=== PATIENT | female | born 1955 | race Caucasian/White ===

== ENCOUNTER → 2020-04-11 10:01 | Outpatient (CLI) | payer OTHER, SELFPAY ==
--- NOTE | ~2020-04-11 | MM_ITS ---
EXAMINATION: MM screening zaira BI w sage HISTORY: Screening TECHNIQUE: Craniocaudal and mediolateral oblique 3-D tomosynthesis images were obtained and synthetic 2-D images were generated. CAD analysis was submitted and interpreted. COMPARISON: Comparison to multiple prior studies sequentially, with oldest reviewed study dated 03/04. BREAST PARENCHYMAL COMPOSITION: There are scattered areas of fibroglandular density. FINDINGS: There is no evidence of suspicious mass, calcification, or architectural distortion to sugg est malignancy in either breast. There has been no suspicious interval change. IMPRESSION: 1. No mammographic evidence of malignancy. 2. Recommend routine screening mammography in one year. BI-RADS Category 1: Negative Reviewed, dictated and finalized at location A. GER BUSINESS PROCESS
== END ==
PROVIDERS: Visit Provider Obstetrics & Gynecology
DX: Z12.31 Encounter for screening mammogram for malignant neoplasm of breast (principal)
CPT/HCPCS: 77063; 77067

== ENCOUNTER → 2020-06-02 14:48 | Outpatient (CLI) | payer OTHER, SELFPAY ==
--- NOTE | ~2020-06-02 | CT_ITS ---
EXAMINATION: CT abdomen pelvis wo con DATE: 06/02/2020 15:04 INDICATION: Right lower quadrant pain TECHNIQUE: Computed tomography (CT) of the abdomen and pelvis was performed without intravenous contr ast. The dose-length product (DLP) was 562.30 mGy-cm. Automated exposure control and iterative recons truction technique were employed. COMPARISON: None FINDINGS: The lung bases are clear. The heart size is normal. The liver, spleen, pancreas, gallbladde r, and adrenal glands are normal. The kidneys are unremarkable. No pathologically enlarged abdominal or pelvic lymph nodes are identified. There is no free intraperitoneal gas or evidence of bowel obstr uction. A moderate volume of colonic stool is present. The appendix is not identified however no righ t lower quadrant inflammatory change is seen. There is a fat-containing umbilical hernia. Mild lumbar spondylosis is noted. Calcified fibroids are present in the uterus. IMPRESSION: 1. No CT correlate for the patient's symptoms. Reviewed, dictated and finalized at location A. 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
== END ==
PROVIDERS: PCP Family Medicine; Visit Provider Family Medicine
DX: R10.9 Unspecified abdominal pain (principal); K42.9 Umbilical hernia without obstruction or gangrene; M47.816 Spondylosis without myelopathy or radiculopathy, lumbar region; D25.9 Leiomyoma of uterus, unspecified
CPT/HCPCS: 74176

== ENCOUNTER 2020-10-07 12:02 | Outpatient (CLI) | payer OTHER, SELFPAY ==
--- NOTE | ~2020-10-07 | NM_ITS ---
EXAMINATION: NM hepatobiliary wo pharm DATE: 10/07/2020 14:33 INDICATION: Calculus of bile duct without cholangitis. COMPARISON: CT abdomen and pelvis 06/02/2020 TECHNIQUE: 5.1 mCi Tc-99m mebrofenin (Choletec) was administered intravenously. Scintigraphic images of the abdomen were obtained for one hour. Then, the patient drank 8 oz Ensure, and imaging was cont inued for 60 minutes. FINDINGS: There is normal clearance of radiotracer from the blood pool. There is homogeneous tracer u ptake by the liver. Activity progresses to the bowel and gallbladder. Gallbladder ejection fraction (GBEF) was 56%. Note that with this technique, normal GBEF >= 33%. IMPRESSION: 1. Normal hepatobiliary scintigraphy. Reviewed, dictated and finalized at location A.
== END 2020-10-07 12:03 | disposition home or self-care (01) ==
LOC: ANHIMG 12:05
PROVIDERS: PCP Family Medicine; Visit Provider Family Medicine
DX: K80.50 Calculus of bile duct without cholangitis or cholecystitis without obstruction (principal); E04.1 Nontoxic single thyroid nodule
CPT/HCPCS: 78226; A9537

== ENCOUNTER 2020-10-08 01:58 | Day surgery (SDC) | payer OTHER, SELFPAY ==
[2020-10-01 11:52] VITALS: BMI 24.8
[2020-10-08 10:21] VITALS: BP 141/84; PULSE 72; RESP 18; TEMP 36.9; O2SAT 97; BMI 24.8
[2020-10-08] MEDS: LACTATED RINGERS 1,000 ML 150 ML IV CONT (10:35)
--- NOTE | 2020-10-08 10:53 | WPDANESEPPF ---
Anes - Initial Pre Proc Eval Procedure: Operation Date: 10/08/20 11:30 Proposed Procedures p Esophagogastroduodenoscopy - Jose Reeves MD Date/Time: 10/08/20 10:53 Surgeon: Jose Reeves MD Pre Op Diagnosis: dysphagia, GERD Patient Data Age: 65 Gender: F Height: 1.7 m Weight: 72 kg Last Vital Signs Temp 36.9 C 10/08/20 10:21 Pulse 72 10/08/20 10:21 Resp 18 10/08/20 10:21 BP 141/84 H 10/08/20 10:21 Pulse Ox 97 10/08/20 10:21 Allergies Allergy/AdvReac Type Severity Reaction Status Date / Time sulfamethoxazole Allergy Mild HIVES Verified 10/08/20 10:19 sulfamethizole Allergy Unknown Hives Verified 10/08/20 10:19 trimethoprim Allergy Unknown Hives Verified 10/08/20 10:19 Home Medications Medication Instructions Recorded Confirmed Type calcium carbonate-vitamin D3 600 2 cap PO DAILY 11/22/19 10/01/20 History mg (1,500 mg)-400 unit capsule cholecalciferol (vitamin D3) 50 2,000 unit PO DAILY tablet 11/22/19 10/01/20 History mcg (2,000 unit) tablet metronidazole 0.75 % lotion 1 applic TOPICAL .COMPLEX 11/22/19 10/01/20 History multivitamin 1 tablet PO .COMPLEX 11/22/19 10/01/20 History fexofenadine 180 mg tablet 180 mg PO DAILY 11/25/19 10/01/20 History olopatadine 0.2 % eye drops 1 drop EACH EYE DAILY 11/25/19 10/01/20 History Synthroid 50 mcg tablet 50 mcg PO DAILY #90 tablet NS 08/18/20 10/08/20 Rx doxycycline hyclate 20 mg tablet 20 mg PO . q.a.m. tablet 09/30/20 10/01/20 History esomeprazole magnesium 40 mg 40 mg PO DAILY #30 cap 09/30/20 10/01/20 Rx capsule,delayed release vit C,J-Rj-nmtia-lutein-zeaxan 1 cap PO DAILY 10/01/20 10/01/20 History [Ocuvite Lutein and Zeaxanthin] Patient hx anesthesia problems: none Family hx anesthesia problems: none PMFSH Past Medical History Medical History Abdominal pain Allergies Arthritis BMI 25.0-25.9,adult Dysphagia Elevated triglycerides with high cholesterol Gastro-esophageal reflux disease without esophagitis Hypothyroidism Mixed hyperlipidemia Ocular rosacea Recurrent biliary colic Seasonal allergic rhinitis Vitamin D deficiency Surgical History Surgical History Bone spur of foot Bone Spur removal Left & Right Food 2012 & 2014 H/O right inguinal hernia repair 1974 History of carpal tunnel surgery of left wrist History of carpal tunnel surgery of right wrist History of tonsillectomy and adenoidectomy Family History Family History Sibling Family history of gastrointestinal disorder Family history of arthritis Family history of lupus erythematosus Mother , at age 92 Family history of arthritis Family history of chronic obstructive pulmonary disease Heart disease Father , at age 75 Depression Mesothelioma Grandparent , at age 86 Heart disease Diabetes mellitus Grandparent , at age 33 from accident Depression Grandparent , at age 85 No problems noted. Social History Social History Smoking status: Never smoker Alcohol intake: current Drinks per week: 1 Alcohol use details: 1 glass of wine per week Substance use: never Substance use type: does not use Living arrangements: with family Spiritual care concerns: No Anes - Eval Final PreProcedure Day of Procedure 10/08/20 10:53 Patient weight: normal Heart: regular rate and rhythm Lungs: clear to auscultation Airway: Mallampati scale class II Neurological: alert and oriented Last oral intake: >/= 8 hours ASA classification: II Emergent: no Anesthetic plan: proceed Anesthesia type and monitoring: general GIVS and standard monitoring Informed Consent: The patient's anesthetic plan and its attendant risks and benefits were disc
--- NOTE | 2020-10-08 11:28 | PM.HPGS ---
History of Present Illness History of Present Illness Consent: Risks, benefits, and alternatives have been discussed and questions answered. Patient agrees to proceed with procedure. Chief complaint: dysphagia, GERD Narrative: Violette Martinez is a 65 year old female with a long history of acid reflux. She taking Nexium [id number] for years with fairly good results. When she tried Prilosec it did not help. She will have heartburn frequently. Also it would often seen that food was not going down, getting caught in her throat. Review of Systems Review of Systems: All systems reviewed & are unremarkable except as noted in HPI and below PMFSH Past Medical History Medical History Abdominal pain Allergies Arthritis BMI 25.0-25.9,adult Dysphagia Elevated triglycerides with high cholesterol Gastro-esophageal reflux disease without esophagitis Hypothyroidism Mixed hyperlipidemia Ocular rosacea Recurrent biliary colic Seasonal allergic rhinitis Vitamin D deficiency Surgical History Surgical History Bone spur of foot Bone Spur removal Left & Right Food 2012 & 2014 H/O right inguinal hernia repair 1975 History of carpal tunnel surgery of left wrist History of carpal tunnel surgery of right wrist History of tonsillectomy and adenoidectomy Family History Family History Sibling Family history of gastrointestinal disorder Family history of arthritis Family history of lupus erythematosus Mother , at age 92 Family history of arthritis Family history of chronic obstructive pulmonary disease Heart disease Father , at age 75 Depression Mesothelioma Grandparent , at age 86 Heart disease Diabetes mellitus Grandparent , at age 33 from accident Depression Grandparent , at age 85 No problems noted. Social History Social History Smoking status: Never smoker Alcohol intake: current Drinks per week: 1 Alcohol use details: 1 glass of wine per week Substance use: never Substance use type: does not use Living arrangements: with family Spiritual care concerns: No Meds Home Medications and Allergies Home Medications Medication Instructions Recorded Confirmed Type calcium carbonate-vitamin D3 600 2 cap PO DAILY 11/22/19 10/01/20 History mg (1,500 mg)-400 unit capsule cholecalciferol (vitamin D3) 50 2,000 unit PO DAILY tablet 11/22/19 10/01/20 History mcg (2,000 unit) tablet metronidazole 0.75 % lotion 1 applic TOPICAL .COMPLEX 11/22/19 10/01/20 History multivitamin 1 tablet PO .COMPLEX 11/22/19 10/01/20 History fexofenadine 180 mg tablet 180 mg PO DAILY 11/25/19 10/01/20 History olopatadine 0.2 % eye drops 1 drop EACH EYE DAILY 11/25/19 10/01/20 History Synthroid 50 mcg tablet 50 mcg PO DAILY #90 tablet NS 08/18/20 10/08/20 Rx doxycycline hyclate 20 mg tablet 20 mg PO . q.a.m. tablet 09/30/20 10/01/20 History esomeprazole magnesium 40 mg 40 mg PO DAILY #30 cap 09/30/20 10/01/20 Rx capsule,delayed release vit C,E-Og-qfqaw-lutein-zeaxan 1 cap PO DAILY 10/01/20 10/01/20 History [Ocuvite Lutein and Zeaxanthin] Allergies Allergy/AdvReac Type Severity Reaction Status Date / Time sulfamethoxazole Allergy Mild HIVES Verified 10/08/20 10:19 sulfamethizole Allergy Unknown Hives Verified 10/08/20 10:19 trimethoprim Allergy Unknown Hives Verified 10/08/20 10:19 Vital Signs Vital Signs - 24 hr 10/08/20 10:21 Temperature 36.9 C Pulse Rate 72 Respiratory Rate 18 Blood Pressure 141/84 H Pulse Oximetry 97 Exam Const: General: alert Orientation/consciousness: patient oriented x3 Resp: Auscultation: clear to auscultation bilaterally Cardio: Rhythm: regular rhythm GI:
[2020-10-08 12:14] VITALS: BP 101/59; PULSE 66; RESP 14; O2SAT 98
[2020-10-08 12:24] VITALS: BP 109/66; PULSE 73; RESP 17; O2SAT 96
[2020-10-08 12:34] VITALS: BP 112/74; PULSE 66; RESP 14; O2SAT 99
== END 2020-10-08 13:13 | disposition home or self-care (01) ==
PROVIDERS: PCP Family Medicine; Visit Provider Internal Medicine Gastroenterology
PROC: 0DJ08ZZ Inspection of Upper Intestinal Tract, Via Natural or Artificial Opening Endoscopic (ICD-10-PCS; CPT 43235; principal; 2020-10-08 11:30)
DX: K21.00 Gastro-esophageal reflux disease with esophagitis, without bleeding (principal); R13.10 Dysphagia, unspecified; E78.2 Mixed hyperlipidemia; E03.9 Hypothyroidism, unspecified; E55.9 Vitamin D deficiency, unspecified
CPT/HCPCS: 43239; 88305; J2704; J7120

== ENCOUNTER → 2021-04-13 10:05 | Outpatient (CLI) | payer OTHER, SELFPAY ==
--- NOTE | ~2021-04-13 | MMUS_ITS ---
EXAMINATION: MM diagnostic zaira BI w sage, US breast RT limited HISTORY: History of right breast abscess. Palpable abnormality. TECHNIQUE: Additional 3-D tomosynthesis images of the breasts were performed and synthetic 2-D images were generated. CAD analysis was submitted and interpreted. High resolution Limited right breast ult rasound was performed. COMPARISON: Comparison to multiple prior studies sequentially, with oldest reviewed study dated 03/03. BREAST PARENCHYMAL COMPOSITION: Breast composed of scattered areas of fibroglandular density FINDINGS: MAMMOGRAPHIC FINDINGS: In the upper outer quadrant of the right breast there is a focal mass corresponding to the area of pa lpable concern. This mass measures approximately 8 mm greatest dimension. No suspicious calcification s or architectural distortion. No evidence for malignancy in the left breast. ULTRASOUND: Limited right breast ultrasound: At 10:00, 13 cm from the nipple in the area of palpable concern there is a normal hypoechoic mass wit h echogenic hilum measuring 7 x 5 x 3 mm, likely benign intramammary lymph node. This corresponds to the area of palpable concern. At 10:00, 13 cm from the nipple there is an oval hypoechoic complicated cyst measuring 4 mm. No additional masses are identified. IMPRESSION: 1. Probable benign right breast masses corresponding to the area of palpable concern. 2. Recommend 6 month follow-up diagnostic right mammogram and ultrasound BI-RADS category 3, probably benign findings. Reviewed, dictated and finalized at location A. I TUBE BENDER IMPRESSION: 1. Probable benign right breast masses corresponding to the area of palpable co ncern. 2. Recommend 6 month follow-up diagnostic right mammogram and ultrasound BI-RADS category 3, probably benign findings.
== END ==
PROVIDERS: PCP Family Medicine; Visit Provider Obstetrics & Gynecology
DX: N61.1 Abscess of the breast and nipple (principal); R92.8 Other abnormal and inconclusive findings on diagnostic imaging of breast
CPT/HCPCS: 76642; 77062; 77066; G0279

== ENCOUNTER → 2021-11-10 07:35 | Outpatient (CLI) | payer OTHER, SELFPAY ==
--- NOTE | ~2021-11-10 | MMUS_ITS ---
EXAMINATION: MM diagnostic zaira RT w sage, US breast RT limited HISTORY: Six-month follow-up for probably benign right breast mass TECHNIQUE: Craniocaudal, mediolateral, and mediolateral oblique 3-D tomosynthesis images of the right breast were performed and synthetic 2-D images were generated. CAD analysis was submitted and interp reted. High resolution limited right breast ultrasound was performed. COMPARISON: 04/13/2021, 04/11/2020, 03/15/2019 BREAST PARENCHYMAL COMPOSITION: There are scattered areas of fibroglandular density. FINDINGS: MAMMOGRAPHIC FINDINGS: There is a 5 mm low-density superficial mass in the posterior third of the upper outer quadrant of th e breast which demonstrates slight decrease in size. No suspicious mass, calcification, or architectu ral distortion are identified. ULTRASOUND: There is a 6 mm hypoechoic mass at the 10:00 location 13 cm from the nipple which demonstrates interv al decrease in size. A second previously detected mass at the 10:00 location 13 cm from the nipple is no longer identified. IMPRESSION: 1. Right breast mass with interval decrease in size, consistent with a benign finding. 2. Routine screening mammography is recommended. BI-RADS Category 2: Benign finding(s). Reviewed, dictated and finalized at location A. IMPRESSION: 1. Right breast mass with interval decrease in size, consistent with a benign f inding. 2. Routine screening mammography is recommended. BI-RADS Category 2: Benign finding(s).
== END ==
PROVIDERS: PCP Family Medicine; Visit Provider Obstetrics & Gynecology
DX: R92.8 Other abnormal and inconclusive findings on diagnostic imaging of breast (principal)
CPT/HCPCS: 76642; 77061; 77065; G0279

== ENCOUNTER 2021-11-15 00:38 | Day surgery (SDC) | payer OTHER, SELFPAY ==
--- NOTE | 2021-10-29 14:04 | PC.NURSE ---
Spoke with patient regarding recall on mag citrate. Patient instructed not to buy or take this medication. Patient understands and has no questions at this time.
--- NOTE | 2021-11-13 09:41 | PM.HPGS ---
History of Present Illness History of Present Illness Consent: Risks, benefits, and alternatives have been discussed and questions answered. Patient agrees to proceed with procedure. She has history of colon polyps removed about 5 years ago. Chief complaint: hx of colon polyps Narrative: Violette Martinez is a 66 year old female Referred for colon cancer screening. She has a history of polyps. 5 years ago she had removal of several rectal polyps, 1 of which was a sessile serrated adenoma. 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 Cholesterol 178, triglycerides 132, HDL 47, LDL 108 on 08/23/2021. Ocular rosacea Overweight (BMI 25.0-29.9) Polyp of colon (12/07/16) Colonoscopy 12/07/2016 with 5 sessile [address] poly[address] with Dr[address] Juarez with repeat in 5 years Recurrent biliary colic Rosacea, acne Seasonal allergic rhinitis Vitamin D deficiency (09/05/11) Surgical History Surgical History Bone spur of foot Bone Spur removal Left & Right Food 2012 & 2014 H/O right inguinal hernia repair 1974 History of carpal tunnel surgery of left wrist History of carpal tunnel surgery of right wrist History of tonsillectomy and adenoidectomy Family History Family History Sibling Family history of gastrointestinal disorder Family history of arthritis Family history of lupus erythematosus Mother , at age 92 Family history of arthritis Family history of chronic obstructive pulmonary disease Heart disease Father , at age 75 Depression Mesothelioma Grandparent , at age 86 Heart disease Diabetes mellitus Grandparent , at age 33 from accident Depression Grandparent , at age 85 No problems noted. Social History Social History Smoking status: Never smoker Alcohol intake: current Drinks per week: 1 Alcohol use details: 1 glass of wine per week Substance use: never Substance use type: does not use Living arrangements: with family Spiritual care concerns: No Meds Home Medications and Allergies Home Medications Medication Instructions Recorded Confirmed Type calcium carbonate 600 mg-vitamin 2 cap PO DAILY 11/22/19 11/15/21 History D3 10 mcg (400 unit) capsule cholecalciferol (vitamin D3) 50 2,000 unit PO DAILY 11/22/19 11/15/21 History mcg (2,000 unit) tablet metronidazole 0.75 % lotion 1 applic topical .COMPLEX 11/22/19 11/15/21 History multivitamin 1 tablet PO .COMPLEX 11/22/19 11/15/21 History fexofenadine 180 mg tablet 180 mg PO DAILY 11/25/19 11/15/21 History olopatadine 0.2 % eye drops 1 drop ophthalmic (eye) DAILY 11/25/19 11/15/21 History doxycycline hyclate 20 mg tablet 20 mg PO . q.a.m. 09/30/20 11/15/21 History vit C,W-Mr-pknazy-lutein-zeaxan 60 1 cap PO DAILY 10/01/20 11/15/21 History mg-13.5 mg-15 mg-2 mg-6 mg capsule (Ocuvite Lutein and Zeaxanthin) Synthroid 50 mcg tablet 50 mcg PO DAILY #90 tabs 08/12/21 11/15/21 Rx (levothyroxine) esomeprazole magnesium 40 mg 40 mg PO DAILY #30 caps 09/06/21 11/15/21 Rx capsule,delayed release (Nexium) Allergies
[2021-11-15 06:25] VITALS: BP 141/85; PULSE 86; RESP 18; TEMP 36.9; O2SAT 98; BMI 25.2
[2021-11-15] MEDS: LACTATED RINGERS 1,000 ML 150 ML IV CONT (06:46)
--- NOTE | 2021-11-15 06:48 | WPDANESEPPF ---
Anes - Initial Pre Proc Eval Procedure: Operation Date: 11/15/21 07:30 Proposed Procedures p Screening Colonoscopy - Jose Reeves MD Date/Time: 11/15/21 06:48 Surgeon: Jose Reeves MD Pre Op Diagnosis: hx of colon polyps Patient Data Age: 66 Gender: F Height: 1.7 m Weight: 73 kg Last Vital Signs Temp 36.9 C 11/15/21 06:25 Pulse 86 11/15/21 06:25 Resp 18 11/15/21 06:25 BP 141/85 H 11/15/21 06:25 Pulse Ox 98 11/15/21 06:25 O2 Del Method Room Air 11/15/21 06:25 Allergies Allergy/AdvReac Type Severity Reaction Status Date / Time sulfamethoxazole Allergy Mild HIVES Verified 10/29/21 13:47 sulfamethizole Allergy Unknown Hives Verified 10/29/21 13:47 trimethoprim Allergy Unknown Hives Verified 10/29/21 13:47 Home Medications Medication Instructions Recorded Confirmed Type calcium carbonate 600 mg-vitamin 2 cap PO DAILY 11/22/19 10/29/21 History D3 10 mcg (400 unit) capsule cholecalciferol (vitamin D3) 50 2,000 unit PO DAILY 11/22/19 10/29/21 History mcg (2,000 unit) tablet metronidazole 0.75 % lotion 1 applic topical .COMPLEX 11/22/19 10/29/21 History multivitamin 1 tablet PO .COMPLEX 11/22/19 10/29/21 History fexofenadine 180 mg tablet 180 mg PO DAILY 11/25/19 10/29/21 History olopatadine 0.2 % eye drops 1 drop ophthalmic (eye) DAILY 11/25/19 10/29/21 History doxycycline hyclate 20 mg tablet 20 mg PO . q.a.m. 09/30/20 10/29/21 History vit C,X-Hc-egtblv-lutein-zeaxan 60 1 cap PO DAILY 10/01/20 10/29/21 History mg-13.5 mg-15 mg-2 mg-6 mg capsule (Ocuvite Lutein and Zeaxanthin) Synthroid 50 mcg tablet 50 mcg PO DAILY #90 tabs 08/12/21 10/29/21 Rx (levothyroxine) esomeprazole magnesium 40 mg 40 mg PO DAILY #30 caps 09/06/21 10/29/21 Rx capsule,delayed release (Nexium) Patient hx anesthesia problems: none Family hx anesthesia problems: none Results Review: All pre-operative results and documents have been reviewed as part of the pre-operative evaluation. [facility] Past Medical History Medical History Abdominal pain Abscess of breast Allergies Arthritis Blepharitis of both upper and lower eyelid treated by lead python developer with doxycycline BMI 25.0-25.9,adult Chronic pain of left knee Dysphagia Elevated triglycerides with high cholesterol Encounter for screening for diseases of the blood and blood-forming organs and certain disorders involving the immune mechanism Gastro-esophageal reflux disease without esophagitis Hypothyroidism Mixed hyperlipidemia total cholesterol 235, triglycerides 184, HDL excellent at 63, LDL elevated at 139 on 06/16/2021. Cholesterol 178, triglycerides 132, HDL 47, LDL 108 on 08/23/2021. Ocular rosacea Overweight (BMI 25.0-29.9) Polyp of colon (12/07/16) Colonoscopy 12/07/2016 with 5 sessile rectal polyps with Dr. Juarez with repeat in 5 years Recurrent biliary colic Rosacea, acne Seasonal allergic rhinitis Vitamin D deficiency (09/05/11) Surgical History Surgical History Bone spur of foot Bone Spur removal Left & Right Food 2012 & 2014 H/O right inguinal hernia repair 1974 History of carpal tunnel surgery of left wrist History of carpal tunnel surgery of right wrist History of tonsillectomy and adenoidectomy Family History Family History Sibling Family history of gastrointestinal disorder Family history of arthritis Family history of lupus erythematosus Mother , at age 92 Family history of arthritis Family history of chronic obstructive pulmonary disease Heart disease Father , at age 75 Depression Mesothelioma Grandparent , at age 86 Heart disease Diabetes mellitus Grandparent , at age 33 from accident Depression Grandparent , at age 85 No problems noted. Social History Social History (Rev
[2021-11-15 07:40] VITALS: BP 102/67; PULSE 68; RESP 16; O2SAT 97
[2021-11-15 07:50] VITALS: BP 110/69; PULSE 66; RESP 18; O2SAT 99
[2021-11-15 08:00] VITALS: BP 107/72; PULSE 68; RESP 18; O2SAT 99
== END 2021-11-15 08:12 | disposition home or self-care (01) ==
PROVIDERS: PCP Family Medicine; Visit Provider Internal Medicine Gastroenterology
PROC: 0DJD8ZZ Inspection of Lower Intestinal Tract, Via Natural or Artificial Opening Endoscopic (ICD-10-PCS; CPT 45378; principal; 2021-11-15 07:30)
DX: Z12.11 Encounter for screening for malignant neoplasm of colon (principal); Z86.010 Personal history of colon polyps; K21.9 Gastro-esophageal reflux disease without esophagitis; E78.2 Mixed hyperlipidemia; E55.9 Vitamin D deficiency, unspecified
CPT/HCPCS: 45378; J2704; J7120

== ENCOUNTER → 2022-01-21 13:02 | Outpatient (CLI) | payer OTHER, SELFPAY ==
--- NOTE | ~2022-01-21 | DEXA_ITS ---
Bone Density Report Name: YONY CUETO Age: 66 Sex: Female Ethnicity: White Date of : 1955 Indication: postmenopausal; screening for osteoporosis; Referring Provider: ALEXANDER ALEJANDRA Study: Bone densitometry was performed. Exam Date: January 21, 2022 Accession number: [id number] Bone Density: Region BMD T-score Z-score Classification AP Spine (L1-L4) 1.085 0.3 2.1 Normal Femoral Neck (Left) 0.879 0.3 1.8 Normal Total Hip (Left) 1.013 0.6 1.8 Normal Femoral Neck (Right) 0.891 0.4 1.9 Normal Total Hip (Right) 1.080 1.1 2.4 Normal Total Hip Mean 1.047 0.9 2.1 Normal World Health Organization criteria for BMD impression classify patients as: Normal (T-score at or above -1.0), Osteopenia (T-score between -1.0 and -2.5), or Osteoporosis (T-score at or below -2.5). 10-year Fracture Risk: FRAX not reported because: All T-scores for Spine Total, Hip Total, Femoral Neck at or above -1.0 Previous Exams: Region Exam Age BMD T-score BMD Change BMD Change Date g/cm2 vs Baseline vs Previous AP Spine(L1-L4) 01/21/2022 66 1.085 0.3 -0.107* -0.019 03/15/2019 63 1.104 0.5 -0.087* -0.026* 11/11/2016 61 1.130 0.8 -0.061* -0.050* 10/01/2010 55 1.181 1.2 -0.011 -0.011 06/04/2007 51 1.192 1.3 Total Hip(Left) 01/21/2022 66 1.013 0.6 -0.100* -0.050* 03/15/2019 63 1.063 1.0 -0.050* -0.023 11/11/2016 61 1.086 1.2 -0.027 -0.007 10/01/2010 55 1.093 1.2 -0.020 -0.020 06/04/2007 51 1.113 1.4 Total Hip(Right) 01/21/2022 66 1.080 1.1 -0.029* 0.001 03/15/2019 63 1.079 1.1 -0.030* -0.001 11/11/2016 61 1.080 1.1 -0.029* -0.028* 10/01/2010 55 1.108 1.4 -0.001 -0.001 06/04/2007 51 1.108 1.4 *Denotes significance at 95% confidence level, LSC for AP Spine = 0.022 g/cm2, LSC for Total Hip = 0.027 g/cm2 Clinical Information Provided by Patient: Has used the following medications: Vitamin D, Calcium, MTV, SYNTHROID Patient maximum height was 67.0 Menopause Age: 55 Drinks caffeinated beverages Onset of menses at age 12 Number of children 0 Impression: The patient has normal bone mass. The BMD for the Total Hip(Left) decreased, changing by -0.050 since the last DXA exam.
== END ==
PROVIDERS: PCP Obstetrics & Gynecology; Visit Provider Obstetrics & Gynecology
DX: Z78.0 Asymptomatic menopausal state (principal)
CPT/HCPCS: 77080

== ENCOUNTER → 2022-05-30 06:51 | Outpatient (CLI) | payer OTHER, SELFPAY ==
--- NOTE | ~2022-05-30 | MR_ITS ---
MRI of the left knee Clinical history: Pain Technique: Coronal proton density and proton density-weighted images, sagittal proton-density and T2 fat-sat images, and axial proton-density fat-saturated images were acquired. Findings: There is prominent mucoid degenerative change of the ACL which is thickened and hyperintens e. Fibers remain intact however, with normal orientation. There are probable associated ganglion cyst arising from the ACL proximally, measuring 0.9 x 0.7 cm (series 7 image 12). Posterior cruciate liga ment is intact. Medial collateral ligament and the lateral collateral ligament complex are intact. Popliteus tendon i s intact. There is suspected tear near the posterior root of the medial meniscus, with diminutive appearance of the meniscus in this region. There is associated partial extrusion of the body of medial meniscus in to the medial gutter. No lateral meniscal tear identified. There is moderate chondral thinning towards the medial joint line. Articular cartilage in the lateral compartment is well preserved. There is moderate chondral malacia the central aspect of the femoral trochlea. There is mild chondromalacia patella. Minimal tricompartmental osteophytes are present. Extensor mechanism is intact. Minimal joint effusion present. No Elise's cyst. 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 Suspected tear near the posterior root of the medial meniscus, as detailed above. Mild tricompartmental osteoarthritis, as detailed above. Reviewed, dictated and finalized at [facility]. OR LANDSCAPER/GARDENER Impression: Prominent mucoid degenerative change of the ACL with associated 9 x 7 mm ACL ga nglion cyst. Suspected tear near the posterior root of the medial meniscus, as detailed abov e. Mild tricompartmental osteoarthritis, as detailed above.
== END ==
PROVIDERS: PCP Family Medicine; Visit Provider Orthopaedic Surgery
DX: M67.462 Ganglion, left knee (principal); M17.12 Unilateral primary osteoarthritis, left knee; M25.562 Pain in left knee
CPT/HCPCS: 73721

== ENCOUNTER → 2022-06-03 10:02 | Outpatient (CLI) | payer OTHER, SELFPAY ==
--- NOTE | ~2022-06-03 | MM_ITS ---
EXAMINATION: MM screening zaira BI w sage HISTORY: Screening TECHNIQUE: Craniocaudal and mediolateral oblique 3-D tomosynthesis images were obtained and synthetic 2-D images were generated. CAD analysis was submitted and interpreted. COMPARISON: Comparison to multiple prior studies sequentially, with oldest reviewed study dated 03/03. BREAST PARENCHYMAL COMPOSITION: There are scattered areas of fibroglandular density. FINDINGS: There is no evidence of suspicious mass, calcification, or architectural distortion to sugg est malignancy in either breast. There has been no suspicious interval change. IMPRESSION: 1. No mammographic evidence of malignancy. 2. Recommend routine screening mammography in one year. BI-RADS Category 1: Negative Reviewed, dictated and finalized at location B. APPRAISER
== END ==
PROVIDERS: PCP Family Medicine; Visit Provider Obstetrics & Gynecology
DX: Z12.31 Encounter for screening mammogram for malignant neoplasm of breast (principal)
CPT/HCPCS: 77063; 77067

== ENCOUNTER 2023-07-06 07:55 | Outpatient (CLI) | payer OTHER, SELFPAY ==
--- NOTE | ~2023-07-06 | MM_ITS ---
EXAMINATION: MM screening zaira BI w sage HISTORY: Screening TECHNIQUE: Craniocaudal and mediolateral oblique 3-D tomosynthesis images were obtained and synthetic 2-D images were generated. CAD analysis was submitted and interpreted. COMPARISON: Comparison to multiple prior studies sequentially, with oldest reviewed study dated 03/03. BREAST PARENCHYMAL COMPOSITION: Not dense: There are scattered areas of fibroglandular density. FINDINGS: There is no evidence of suspicious mass, calcification, or architectural distortion to sugg est malignancy in either breast. There has been no suspicious interval change. IMPRESSION: 1. No mammographic evidence of malignancy. 2. Recommend routine screening mammography in one year. BI-RADS Category 1: Negative Reviewed, dictated and finalized at location A.
== END 2023-07-06 07:56 ==
LOC: MICIMG 07:56
PROVIDERS: PCP Family Medicine; Visit Provider Obstetrics & Gynecology
DX: Z12.31 Encounter for screening mammogram for malignant neoplasm of breast (principal)
CPT/HCPCS: 77063; 77067

== ENCOUNTER 2023-08-01 11:40 | Outpatient (CLI) | payer OTHER, SELFPAY ==
--- NOTE | 2023-08-01 | ECG_ITS ---
SEE SCANNED COPY FOR CONFIRMED REPORT. MTDD
== END 2023-08-01 11:41 | disposition home or self-care (01) ==
LOC: ANHCARD 11:42
PROVIDERS: PCP Family Medicine; Visit Provider Podiatrist Foot & Ankle Surgery
DX: Z01.818 Encounter for other preprocedural examination (principal)
CPT/HCPCS: 93005

== ENCOUNTER 2024-05-31 13:24 | Outpatient (CLI) | payer OTHER, SELFPAY | END 2024-05-31 13:25 | disposition home or self-care (01) | PROVIDERS: PCP Family Medicine; Visit Provider Family Medicine | DX: E04.9 Nontoxic goiter, unspecified (principal) | CPT/HCPCS: 76536 ==

== ENCOUNTER 2024-07-08 11:57 | Outpatient (CLI) | payer OTHER, SELFPAY ==
--- NOTE | ~2024-07-08 | MM_ITS ---
EXAMINATION: MM screening zaira BI w sage HISTORY: Screening TECHNIQUE: Craniocaudal and mediolateral oblique 3-D tomosynthesis images were obtained and synthetic 2-D images were generated. CAD analysis was submitted and interpreted. COMPARISON: Comparison to multiple prior studies sequentially, with oldest reviewed study dated 12/2018. BREAST PARENCHYMAL COMPOSITION: Not dense: There are scattered areas of fibroglandular density. FINDINGS: There is no evidence of suspicious mass, calcification, or architectural distortion to sugg est malignancy in either breast. There has been no suspicious interval change. IMPRESSION: 1. No mammographic evidence of malignancy. 2. Recommend routine screening mammography in one year. BI-RADS Category 1: Negative Reviewed, dictated and finalized at location A.
== END 2024-07-08 11:58 | disposition home or self-care (01) ==
LOC: MICIMG 12:06
PROVIDERS: PCP Family Medicine; Visit Provider Obstetrics & Gynecology
DX: Z12.31 Encounter for screening mammogram for malignant neoplasm of breast (principal)
CPT/HCPCS: 77063; 77067

== ENCOUNTER → 2024-10-21 11:22 | Outpatient (CLI) | payer MEDICARE, SELFPAY ==
--- NOTE | ~2024-10-21 | XR_ITS ---
XR cervical spine 4-5V 10/21/2024 11:43 Indication: Cervicalgia Procedure: 5 views cervical spine Comparison: 02/05/2018 Findings: No alteration of alignment with flexion and extension. Vertebral body heights are maintaine d. No significant disc narrowing. There is multilevel facet hypertrophy. No prevertebral soft tissue abnormality. No acute fracture or traumatic malalignment. Lung apices are normal. Impression: 1: Moderate cervical spondylosis primarily affecting the facet joints. Reviewed, dictated and finalized at location A. Impression: 1: Moderate cervical spondylosis primarily affecting the facet joints.
--- OUTSIDE RECORDS SUMMARY | 2024-10-21 11:27 | XMS_ITS | Encounter Summary ---
Author Organization [facility] Address [address] [place] [address] Care Team Providers Care Business Operations Manager Name Role Phone Ashley Arteaga MD Primary Care Provider [phone] Encounter Details Date Type Department Care Team (Late st Contact Info) Description 12/23/2022 Lab Requisition [facility] - DermPath Lab [address] [place] [phone] Haleigh Kelley MD [address] [place] [address] [place] [address] Other follicular cysts of the skin and subcutaneous tissue; Other disturbances of skin sensation Social History Tobacco Use Types Packs/Day Years Used Date Smoking Tobacco: Never Smokeless Tobacco: Never Alcohol Use Standard Drinks/Week Comments No 0 (1 standard drink = 0.6 oz pur e alcohol) Comments Unknown Sex and Gender Information Value Date Recorded Sex Assigned at Not on file Legal Sex Female 3:24 PM CDT Gender Identity Not on file Sexual Orientation Not on file documented as of this encounter Plan of Treatment Not on file documented as of this encounter Procedures Procedure Name Priority Date/Time Associated Diagnosis Comments DERMATOPATHOLOGY Routine 12/23/2022 3:33 AM CDT Other follicular cysts of the skin and subcutaneous tissue Other disturbances of skin sensation documented in this encounter Results * DERMATOPATHOLOGY (12/23/2022 3:33 AM CDT) Case Report Dermatopathology Report Case: [id number] Authorizing Provider: Haleigh Kelley MD Collected: 12/23/2022 03:33 AM Ordering Location: [facility] DermPath Lab Received: 12/26/2022 11:55 AM Pathologist: Jean Carlos Davis MD Specimen: Skin, right lateral breast 10:21 AM T DERMATOPATHOLOGY LABORATORY Final Diagnosis Specimen A. SKIN, right lateral breast: NODULAR DERMAL SCAR (L90.5) 10:21 AM T DERMATOPATHOLOGY LABORATORY at 1021 CDT Clinical History Cyst 10:21 AM CDT DERMATOPATHOLOGY LABORATORY Gross Description Specimen A: Received is one formalin filled container labeled with the patient's name and designated right lateral breast. The specimen consists of a 8x6x8 mm piece of skin. The specimen is serially sectioned and a office services representative section is submitted in cassette 1. Jar 1. 10:21 AM T DERMATOPATHOLOGY LABORATORY Microscopic Description Specimen A. SKIN, right lateral breast: There are fibroblasts and collagen bundles oriented parallel to the skin surface with elongated blood vessels, some of which are oriented perpendicular to the skin surface. 10:21 AM T DERMATOPATHOLOGY LABORATORY Disclaimer An external and internal positive and negative controls are appropriate for the histochemical, immunohistochemical and immunofluorescence stain(s) in this case (if any), except where stated explicitly. The performance characteristics of the stain(s) cited in this report were developed and its performance characteristic determined by the Dermatopathology Laboratory at [facility], directed by Dr. Lissa Davis. These tests need not be, and therefore are not, approved by the [place] Food and Drug Administration. The tests are used for clinical purposes. Billing Codes Specimen Charges Stain Charges 95124 1 10:21 AM CDT DERMATOPATHOLOGY LABORATORY Embedded Images 10:21 AM CDT DERMATOPATHOLOGY LABORATORY Pathology/Cytolo gy TISSUE SPECIMEN FROM SKIN / Unknown 12/23/2022 3:33 AM CDT 12/26/2022 11:55 AM CDT us Haleigh Kelley MD LAB - PATHOLOGY/CYTOLOGY ORDERAB LES Final Result DERMATOPATHOLOGY LABORATORY [facility] - Department of Dermatology [facility] [address] [place] [address], [address] [phone] documented in this encounter Visit Diagnoses Diagnosis Other follicular cysts of the skin and subcutaneous tissue Other disturbances of skin sensation documented in this encounter Care Teams Business Operations Manager Relationship Specialty Start Date End Date Ashley Arteaga MD [address] [place] [phone] PCP - General Family Medicine 12/20/12 documented as of this encounter
--- OUTSIDE RECORDS SUMMARY | 2024-10-21 11:27 | XMS_ITS | Encounter Summary ---
Author Organization [facility] Address [address] [place] [address] Care Team Providers Care Caul Puller Name Role Phone Ashley Arteaga MD Primary Care Provider Encounter Details Date Type Department Care Team (Late st Contact Info) Description 05/18/2023 Lab Requisition [facility] - Derm[facility] Lab [address] [place] [phone] Poonam Dela Cruz PA-C [address] [place] [address] Melanocytic nevi of other parts of face; Other specified erythematous conditions Social History Tobacco Use Types Packs/Day Years [...] Priority Date/Time Associated Diagnosis Comments DERMATOPATHOLOGY Routine 05/18/2023 12:0 0 AM EDUCATION ADMINISTRATOR Melanocytic nevi of other parts of face Other specified erythematous conditions documented in this encounter Results * DERMATOPATHOLOGY (05/18/2023 12:00 AM EDUCATION ADMINISTRATOR) Case Report Dermatopathology Report Case: [id number] Authorizing Provider: Poonam Dela Cruz PA-C Collected: 05/18/2023 12:00 AM Ordering Location: [facility] DermPath Lab Received: 05/19/2023 01:23 PM Pathologist: Jean Carlos Davis MD Specimen: Skin, right medial eyebrow 3:44 PM [facility] DERMATOPATHOLOGY LABORATORY Final Diagnosis Specimen A. SKIN, right medial eyebrow: INTRADERMAL MELANOCYTIC NEVUS (D22.39) 3:44 PM EDUCATION ADMINISTRATOR DERMATOPATHOLOGY LABORATORY at 1543 EDUCATION ADMINISTRATOR Clinical History A: Irritated Nevus 3:44 PM [facility] DERMATOPATHOLOGY LABORATORY Gross Description Specimen A: Received is one formalin filled container labeled with the patients name and designated right medial eyebrow. The specimen consists of a shave removal measuring 2x2x1 mm. Jar 0. 3:44 PM [facility] DERMATOPATHOLOGY LABORATORY Microscopic Description Specimen A. SKIN, right medial eyebrow: There are nests of cytologically bland melanocytes within the dermis that mature with depth. 3:44 PM EDUCATION ADMINISTRATOR DERMATOPATHOLOGY LABORATORY Disclaimer An external and internal positive and negative controls are appropriate for the histochemical, immunohistochemical and immunofluorescence stain(s) in this case (if any), except where stated explicitly. The performance characteristics of the stain(s) cited in this report were developed and its performance characteristic determined by the Dermatopathology Laboratory at [facility], directed by Dr. Lissa Davis. These tests need not be, and therefore are not, approved by the [place] Food and Drug Administration. The tests are used for clinical purposes. Billing Codes Specimen Charges Stain Charges 45551 1 4 3:44 PM EDUCATION ADMINISTRATOR DERMATOPATHOLOGY LABORATORY Embedded Images 3:44 PM [facility] DERMATOPATHOLOGY LABORATORY Pathology/Cytolog y TISSUE SPECIMEN FROM SKIN / Unknown 05/18/2023 05/19/2023 1:23 PM EDUCATION ADMINISTRATOR Poonam Dela Cruz PA-C LAB - PATHOLOGY/CYTOLOGY [facility] Final Result DERMATOPATHOLOGY LABORATORY [facility] - Department of Dermatology [facility] Specialized Medicine [address], [address] [phone] documented in this encounter Visit Diagnoses Diagnosis Melanocytic nevi of other parts of face Other specified erythematous conditions documented in this encounter Care Teams Caul Puller Relationship Specialty Start Date End Date Ashley Arteaga MD [address] [place], [place] [phone] PCP - General Family Medicine 12/20/12 documented as of this encounter
--- OUTSIDE RECORDS SUMMARY | 2024-10-21 11:27 | XMS_ITS ---
Author Organization Unknown Medications Medication Instructions Effective Dates (start - stop) Status ketoconazole 20 MG/ML Topica l Cream - Completed meloxicam 15 MG Oral Tablet [id number] :00:00Z - Completed esomeprazole 40 MG Delayed Release Oral Capsule - Completed nystatin 298701 UNT/ML Oral Suspension - Completed esomeprazole 40 MG Delayed Release Oral Capsule - Completed esomeprazole 40 MG Delayed Release Oral Capsule - Completed cephalexin 500 MG Oral Capsule 2023-10-10 T00:00:00Z - Completed cefdinir 300 MG Oral Capsule [id number] 0:00:00Z - Completed esomeprazole 40 MG Delayed Release Oral Capsule - Completed levothyroxine sodium 0.05 MG Oral Tablet [Synthroid] - Completed meloxicam 15 MG Oral Tablet [id number] :00:00Z - Completed levothyroxine sodium 0.05 MG Oral Tablet [Synthroid] - Completed - - Compl eted meloxicam 15 MG Oral Tablet [id number] :00:00Z - Completed levothyroxine sodium 0.05 MG Oral Tablet [Synthroid] - Completed levothyroxine sodium 0.05 MG Oral Tablet [Synthroid] - Completed meloxicam 15 MG Oral Tablet [id number] :00:00Z - Completed fluconazole 100 MG Oral Tablet 2023-09-28 T00:00:00Z - Completed doxycycline hyclate 20 MG Or al Tablet - Completed levothyroxine sodium 0.05 MG Oral Tablet [Synthroid] - Completed doxycycline hyclate 20 MG Or al Tablet - Completed - - Compl eted meloxicam 15 MG Oral Tablet [id number] :00:00Z - Completed levothyroxine sodium 0.05 MG Oral Tablet [Synthroid] - Completed levothyroxine sodium 0.05 MG Oral Tablet [Synthroid] - Completed meloxicam 15 MG Oral Tablet [id number] :00:00Z - Completed Patient Care team information Name Category Status Period Participants - - Proposed period not known -
--- OUTSIDE RECORDS SUMMARY | 2024-10-21 11:27 | XMS_ITS | Clinical Summary ---
Author Organization [facility] Address [address] [address] Care Team Providers Care Date Night Caregiver Name Role Phone Ashley Arteaga MD Primary Care Provider [phone] Source Comments [facility],non-owned Affiliates and Associated Physician Practices is amultiple site organization consisting of ambulatory clinics and hospital sitesin [place], [place], [place] and [place]. This disclosure is being madepursuant to the Care Everywhere program and may not contain all information available regarding this patient. Last updated 17.[facility] Allergies No known active allergies Medications * Be aware that medications may not be up to date on this document. Alwaysverify current medications with the patient. levothyroxine (SYNTHROID) 88 MCG tablet Active escitalopram (LEXAPRO) 20 MG tablet Active Cholecalciferol (VITAMIN D3) 2000 UNITS TABS Active Cyanocobalamin (B-12) 2500 MCG TABS Active Naproxen Sodium (ALEVE) 220 MG CAPS Active Active Problems No known active problems Family History Relation Name Status Comments Father mesothelioma Mother Alive arthritis/back problems Social History Tobacco Use Types Packs/Day Years Used Date Smoking Tobacco: Never Smokeless Tobacco: Never Alcohol Use Standard Drinks/Week Comments No 0 (1 standard drink = 0.6 oz pur e alcohol) Comments Unknown Sex and Gender Information Value Date Recorded Sex Assigned at Not on file Legal Sex Female 3:24 PM CDT Gender Identity Not on file Sexual Orientation Not on file Last Filed Vital Signs Vital Sign Reading Time Taken Comments Blood Pressure - - Pulse - - Temperature - - Respiratory Rate - - Oxygen Saturation - - Inhaled Oxygen Concentration - - Weight 76.2 kg (168 lb) 12/20/2012 12:53 PM CDT Height 170.2 cm (5' 7) 12/20/2012 12:53 PM CDT Body Mass Index 26.31 12/20/2012 12:53 PM CDT Plan of Treatment Health Maintenance Due Date Last Done Comments BONE DENSITY TESTING 1956 COLOGUARD (AGES 45-75) - COL ON CA SCREENING 1956 COLON MONITORING 1956 COLONOSCOPY - COLON CA SCREENING 1956 CT COLONOGRAPHY - COLON CA SCREENING 1956 Colorectal Cancer Screening 1956 FIT - COLON CA SCREENING 1956 FLEX SIG - COLON CA SCREENING 1956 LIPID TESTING 1956 MAMMOGRAM 1956 HEPATITIS C SCREENING 07/11/1974 DTAP/TDAP/TD VACCINES (1 - Tdap) 07/16/1975 PNEUMOCOCCAL VACCINE 50+ (1 of 1 - PCV) 2006 ZOSTER VACCINE (1 of 2) 2006 COVID-19 VACCINE (1 - 2023-2 5 season) 2023 DEPRESSION SCREENING 04/03/2024 INFLUENZA VACCINE (#1) 2024 Respiratory Syncytial Virus (RSV) Vaccine Pt: or over 60 yrs (1 - 1-dose 75+ series) 07/16/2031 HEPATITIS B VACCINE Aged Out No longe r eligible based on patient's age to complete this topic HIB VACCINE Aged Out No longer eligi ble based on patient's age to complete this topic HPV VACCINE Aged Out No longer eligi ble based on patient's age to complete this topic MENINGOCOCCAL (Group B) VACC INE SHARED DECISION-MAKING Aged Out No longer eligibl e based on patient's age to complete this topic MENINGOCOCCAL GROUPS A/C/Y/W VACCINE Aged Out No longer eligible b ased on patient's age to complete this topic [place] [address] [place] [address] [employer] Care Teams Date Night Caregiver Relationship Specialty Start Date End Date Ashley Arteaga MD [address] [place] [address] [address] [place] [phone] PCP - General Family Medicine 12/20/12
== END ==
PROVIDERS: PCP Family Medicine; Visit Provider Family Medicine
DX: M47.892 Other spondylosis, cervical region (principal)
CPT/HCPCS: 72050